=== PATIENT | female | born 1995 | race Caucasian/White ===

== ENCOUNTER 2023-07-02 14:00 | Outpatient (REF) | payer OTHER, SELFPAY ==
[2023-07-02 16:13] LABS: MANUAL DIFF FLAG NO
[2023-07-02 16:19] LABS: Basophils Absolute Auto 0.1 X10*3/uL (0.0-0.2); Basophils Percent Auto 0.7 % (0-2); Eosinophils Absolute Auto 0.5 X10*3/uL (0.0-0.4); Eosinophils Percent Auto 3.6 % (0-4); Hemoglobin 13.1 g/dl (12.0-16.0); Imm Gran Abs Auto 0.03 X10*3/uL (0.00-0.03); Imm Gran Pct Auto 0.2 % (0.0-0.4); Lymphocytes Absolute Auto 3.8 X10*3/uL (1.2-4.9); Lymphocytes Percent Auto 29.8 % (20-40); Mean Corpuscular HGB Conc 32.8 g/dl (31.0-35.0); Mean Corpuscular Hemoglobin 30.5 pg (27.0-33.0); Mean Platelet Volume 10.6 fL (9.4-12.3); Monocytes Absolute Auto 0.8 X10*3/uL (0.1-1.2); Monocytes Percent Auto 6.1 % (2-11); Neutrophils Absolute Auto 7.5 x10*3/uL (2.0-8.3); Neutrophils Percent Auto 59.6 % (45-73); Platelet Count 369 X10*3/uL (160-400); Red Cell Distribution Width 13.2 % (11.0-16.0); White Blood Count 12.6 X10*3/uL (4.8-10.8)
[2023-07-02 17:00] LABS: Alanine Aminotransferase 15 U/L (0-31); Albumin Level 4.2 g/dL (3.5-5.0); Alkaline Phosphatase 67 U/L (39-117); Anion Gap 13 (12-20); Aspartate Amino Transferase 15 U/L (5-31); Bilirubin Direct 0.2 mg/dL (0.0-0.5); Bilirubin Total 0.5 mg/dL (0.0-1.0); Blood Urea Nitrogen 10 mg/dL (9-16); Calcium 9.8 mg/dL (8.4-10.2); Carbon Dioxide 26 mmol/L (22-29); Chloride 107 mmol/L (96-108); Cholesterol 159 mg/dL (<200); Estimated Glomerular Filt Rate > 60; Glucose Random 80 mg/dL (60-115); HDL Cholesterol 54 mg/dL (>40); LDL Cholesterol Calculated 90 mg/dL (<100); Potassium 4.2 mmol/L (3.3-5.1); Sodium 142 mmol/L (135-145); Total Protein 6.9 g/dL (6.5-8.0); Triglycerides 76 mg/dL (<150)
[2023-07-02 17:18] LABS: Ferritin 32 ng/mL (10-122); TSH reflex Free T4 1.08 uIU/mL (0.32-4.0); Vitamin D 25-OH Total 11.9 ng/mL (>30)
[2023-07-02 17:23] LABS: Vitamin B12 340 pg/mL (200-900)
[2023-07-02 18:10] LABS: CT PCR NOT DETECTED (Not Detect.); NG PCR NOT DETECTED (Not Detect.)
[2023-07-03 04:43] LABS: HIV AB/AG Nonreactive (Nonreactive); HIV Num 1 0.06 S/CO (0.00-0.99); ~Hepatitis C Antibody Nonreactive (Nonreactive)
[2023-07-03 08:48] LABS: RPR Rapid Plasma Reagin NON-REACTIVE (NON-REACTIVE)
== END 2023-07-02 14:01 | disposition home or self-care (01) ==
LOC: HO.HHCL 14:00
PROVIDERS: Visit Provider Family Medicine
DX: L65.9 Nonscarring hair loss, unspecified (principal); Z11.3 Encounter for screening for infections with a predominantly sexual mode of transmission; D50.9 Iron deficiency anemia, unspecified; E78.6 Lipoprotein deficiency
CPT/HCPCS: 0353U; 80048; 80061; 80076; 82306; 82607; 82728; 84443; 85025; 86592; 86803; 87389

== ENCOUNTER 2024-05-20 | Outpatient (REF) | payer OTHER, SELFPAY ==
[2024-05-24 17:57] LABS: C. trachomatis RNA TMA NOT DETECTED (NOT DETECTED); N. gonorrhoeae RNA TMA NOT DETECTED (NOT DETECTED); Trichomonas (NAAT) NOT DETECTED (NOT DETECTED)
[2024-05-26 10:32] LABS: HPV Genotype 16 Negative (Negative); HPV Genotype 18 Negative (Negative); HPV High Risk Negative (Negative)
--- OUTSIDE RECORDS SUMMARY | 2024-08-05 14:11 | XMS_ITS | Clinical Summary ---
Author Organization [employer] Address [address] [place] [address] [address] [place] [address] Care Team Providers Care Ditch Repairer Name Role Phone Elida Wang MD Primary Care Provider [phone] Allergies No known active allergies Medications * This document contains information received from the source organization and may not represent a complete record from that organization. hydrocortisone ([place]ilo) 0.2 % creamIndications :Rash Apply topically 2 times daily. 15 g 4 Active albuterol (ProAir HFA) 108 (90 Base) MCG/ACT inhaler Inhale 2 puffs every 4 (four) hours if needed for wheezing or shortness of breath. 18 g 5 5 Active fluticasone (Flonase) 50 MCG/ACT nasal sprayIndications :Seasonal allergies Use 1 spray each nostril daily. Shake gently. Before first use, prime pump. After use, clean tip and replace cap. 16 g 2 5 Active cetirizine (ZyrTEC) 10 MG tabletIndication s:Seasonal allergies Take 1 tablet (10 mg) by mouth Once per day. 30 tablet 11 5 05/21/19 26 Active cholecalciferol (Vitamin D-3) 50 MCG (1999 UT) capsuleIndicatio ns:Vitamin D deficiency Take 1 capsule (50 mcg) by mouth Once per day. 90 capsule 3 5 Active benzoyl peroxide (PanOxyl Foaming Wash) 10 % external washIndications: Acne, unspecified acne type Apply topically Once per day. 227 g 5 07/23/19 26 Active Active Problems Problem Noted Date Diagnosed Date [...] facilitated by [facility] -dental home is [facility] -[facility] care proxy given and filed 05/20/24 Assessment & Plan (05/20/2024 10:37 AM EDT): -next comprehensive annual evaluation due after 05/20/25 -[facility] proxy given and filed 05/20/24 Assessment & Plan (05/20/2023 3:05 PM EDT): -next physical exam due after May 19, 2024 -eye care facilitated by -dental home is [facility] -[facility] health care proxy Family planning 05/20/2023 Overview (05/20/2024): - [...] Anxiety. 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 During [facility] Consult Pam presenting with [...] present factors contributing to her symptoms, but bran walsh has been present through her life due to trauma in childhood, she has never engaged in services and identify hesitation due to medication side effects that she noticed when her mother use to take depressive medications. PLAN: New/Additional Services needed Off-site services for Behavioral Health Integration Plan External OP therapy referral Patient Self Plan Patient to utilize skills provided in intervention , Patient to reach out to [facility] team as needed, Comply with medication , and Patient to engage in OP therapy Assessment & Plan (05/20/2023 2:47 PM EDT): -Not controlled, restart Effexor 37.5. Referral to [facility]. -restarted Effexor and came up with plan in 2020 -refer to a therapist 05/20/2023 Resolved Problems Problem Noted Date Diagnosed Date Resolved Date Rash 05/20/2023 02/23/2024 Overview (05/20/2023): -On the forearms has rashes that are red pin point dots -refer to tie fastener 05/20/2023 Assessment & Plan (05/20/2023 2:58 PM EDT): -On the forearms has rashes that are red pin point dots -refer to tie fastener 05/20/2023 Dental caries 05/04/2023 02/23/2024 Symptomatic irreversible pulpitis 05/04/2023 02/23/2024 Encounters Date Type Department Care Team Description 07/22/2024 2:15 PM EDT Office Visit [facility] [address] [place] [phone] Frank Flores MD Telogen effluvium (Primary Dx); Acne, unspecified acne type 07/22/2024 Travel 07/21/2024 Travel 05/23/2024 Telephone [facility] [address] [place] [address] Elida Wang MD Results 05/23/2024 Orders Only [address] [address] Elida Wang MD Vitamin D deficiency (Primary Dx) 05/20/2024 10:00 AM EDT Procedure Visit [address] [address] Elida Wang MD Posterior pain of right hip (Primary Dx); Mild intermittent asthma without complication; Iron deficiency anemia, unspecified iron deficiency anemia type; Seasonal allergies; Recurrent major depressive disorder, in partial remission ([facility]); Family planning; Pap smear for cervical cancer screening; Anemia, unspecified type; Vitamin D deficiency; Routine screening for STI (sexually transmitted infection); Encounter for immunization; Overweight (BMI 25.0-29.9); Dietary counseling; Exercise counseling; Other specified health status 05/20/2024 Orders Only [address] [address] Elida Wang MD 05/20/2024 Travel from Last 3 Months Immunizations Immunization Administration Dates Next Due DTaP 07/04/1998, 5,04/18/1994,01/21 [...] is your housing situation today? I have pratibhahammad arriaga 05/20/[address] you [...] Q2 Not on file 05/20/2024 Comments No Intention Date Recorded No desire to become (finding) 0 05/20/2024 Sex and Gender Information Value Date Recorded Sex Assigned at Female 12/09/2021 10:20 AM EDT Legal Sex Female 10:20 AM EDT Gender Identity Choose not to disclose 10:20 AM EDT Sexual Orientation Choose not to disclose 2021 10:20 AM EDT Last Filed Vital Signs Vital Sign Reading Time Taken Comments Blood Pressure 122/80 07/22/2024 2:06 PM EDT Pulse 72 07/22/2024 2:06 PM EDT Temperature 37.1 C (98.7 F) 07/22/2024 2:06 PM EDT Respiratory Rate 14 07/22/2024 2:06 PM EDT Oxygen Saturation 98% 05/20/2024 9:56 AM EDT Inhaled Oxygen Concentration - - Weight 75.7 kg (166 lb 12.8 oz) 07/22/2024 2:06 PM EDT Height 164.5 cm (5' 4.76 ) 07/22/2024 2:06 PM ED T Body Mass Index 27.96 07/22/2024 2:06 PM EDT Plan of Treatment Health Maintenance Due Date Last Done Comments Dental Oral Exam 1995 Dental Prophylaxis 1995 Dental X-Ray: Bitewings 1995 Dental X-Ray: Full Mouth 1995 Alcohol/Substance Use Screening 05/20/2025 05/20/2024 COVID-19 Vaccine ( season) 2025 10/27/2020, 10/06/2020 Postponed from 10/11/2023 (Patient Refused) Depression Screening 05/20/2025 05/20/2024, 05/21/19 Family Planning (PISQ) 05/20/2025 05/20/2024 SDOH Screening 05/20/2025 05/20/2024 Tobacco Screening 05/20/2025 05/20/2024 Disability Screening 07/21/2025 07/21/2024 Cervical Cancer Screening 05/20/2029 HPV/Cotest 05/20/2029 05/20/2024, 06/13/2016 Pap Smear 05/20/2029 05/20/2024, 11/10, 12/03/2020 DTaP/Tdap/Td Vaccines (7 - Td or Tdap) [...] Years) and At-Risk Patients (6 to 49) Years Completed 05/20/2023 Hepatitis C Screening Completed 07/02/2023 Influenza Vaccine Completed 11/26/2023, , 12/16/2016, Additional history exists HIV Screening Completed 05/20/2024, 06/10, 12/03/2020 Hepatitis A Vaccines Completed 05/20/2024, 05/20/19 Meningococcal B Vaccine Aged Out No l onger eligible based on patient's age to complete this topic RSV under 20 months Aged Out No longe r eligible based on patient's age to complete this topic Rotavirus Vaccines Aged Out No longer eligible based on patient's age to complete this topic Procedures Procedure Name Priority Date/Time Associated Diagnosis Comments CHLAMYDIA/N. GONORRHOEAE AND T. VAGINALIS RNA, QUAL,TMA Routine 05/20/2024 11:43 AM EDT Pap smear for cervical cancer screening Routine screening for STI (sexually transmitted infection) HPV DNA, LOW/HIGH RISK Routine 05/20/2024 11:43 AM EDT VITAMIN B12/FOLATE, SERUM PANEL Routine 05/20/2024 11:20 AM EDT Anemia, unspecified type IRON AND TOTAL IRON BINDING CAPACITY Routine 05/20/2024 11:20 AM EDT Anemia, unspecified type FERRITIN Routine 05/20/2024 11:20 AM EDT Anemia, unspecified type SYPHILIS SCREEN Routine 05/20/2024 11:20 AM EDT Routine screening for STI (sexually transmitted infection) HIV 1/2 ANTIGEN/ANTIBODY, FOURTH GENERATION W/RFL Routine 05/20/2024 11:20 AM EDT Routine screening for STI (sexually transmitted infection) VITAMIN D,25-OH,TOTAL,IA Routine 05/20/2024 11:20 AM EDT Vitamin D deficiency LIPID PANEL, STANDARD Routine 05/20/2024 11:20 AM EDT Overweight (BMI 25.0-29.9) HEPATIC FUNCTION PANEL Routine 05/20/2024 11:20 AM EDT Overweight (BMI 25.0-29.9) BASIC METABOLIC PANEL Routine 05/20/2024 11:20 AM EDT Hair loss CBC WITH AUTO DIFFERENTIAL Routine 05/20/2024 11:20 AM EDT Hair loss TSH W/REFLEX TO FT4 Routine 05/20/2024 1 1:20 AM EDT Hair loss PAP SMEAR Routine 05/20/2024 12:00 AM EDT Pap smear for cervical cancer screening HEPATITIS C AB W/REFL TO HCV RNA, QN, PCR Routine 07/02/2023 2:03 PM EDT Routine screening for STI (sexually transmitted infection) from Last 3 Months or Most Recently Relevant to Health Maintenance Results * STI testing add on (NG, CT, Trich) (05/20/2024 11:43 AM EDT) Trichomonas (NAAT) NOT DETECTED NOT DETECTED [facility] Comment:The analytical perfo rmance characteristics of thisassay have been determined by [employer]. Themodifications have not been cleared or approved bythe FDA. This assay has been validated pursuant to theCLIA regulations and is used for clinical purposes.For additional information, please refer [email or web address][email or web address]/faq/Trichomonastma(This link is being provided for information/educational purposes only.)THIS TEST WAS PERFORMED AT:[employer] [place] [phone] BECKER MD CTNG Ref Lab NOT DETECTED NOT DETECTED [facility] NG Ref Lab NOT DETECTED NOT DETECTED [facility] Swab Cervix uteri structure / Unknown 05/20/2024 11:43 AM EDT 05/23/2024 7:25 AM EDT Elida Wang MD LAB CYTOLOGY ORDERABLES Fi nal Result Performing Organization Address [facility]/ZIP Co de Phone Number [facility] [address] [place] [phone] * HPV DNA, Low/High Risk (05/20/2024 11:43 AM EDT) Pathologist [facility] HPV High Risk Negative Negative [facility] HPV Genotype 16 Negative Negative [facility] HPV Genotype 18 Negative Negative [facility] Comment:HPV testing performe d at [facility] (CLIA#[id number]), [address] [place] [address].Testing for HPV was performed using the [employer] 6800system. The presence of HPV in the female genital tract isassociated with a number of diseases, including cervicalcarcinoma. The HPV DNA high risk pool tests for HPV 31, 33,35, 39, 45, 51, 52, 56, 58, 59, 66 and 68. The testing forHPV 16 and 18 genotypes has also been performed. A positiveresult indicates detection of nucleic acid sequences fromone or more subtypes, whereas a negative result indicatessuch sequences were not detected. 05/20/2024 11:4 3 AM EDT 05/23/2024 7:25 AM EDT Elida Wang MD LAB BLOOD ORDERABLES Final Result Performing Organization Address [facility]/ZIP Co de Phone Number [facility] [address] [place] [phone] * Syphilis Screen (05/20/2024 11:20 AM EDT) Syphilis Screen Nonreactive Nonreactive [facility] Blood Venous blood specimen / Unknown 05/20/2024 11:20 AM EDT 05/20/2024 1:14 PM EDT Elida Wang MD LAB BLOOD ORDERABLES Final Result Performing Organization Address City/[facility]/ZIP Co de Phone Number [facility] [address] [place] [phone] * (ABNORMAL) Vitamin D, 25-Hydroxy, Total, Immunoassay (05/20/2024 11:20 AM EDT) Vitamin D 25-OH Total 17.5(L) >30 ng/mL [facility] Comment: Health Based Reference Values*< 20 ng/mL Ousglmbea33-16 ng/mL Insufficient> 30 ng/mL Sufficient*Rhoda CHIN. N Engl J Med. 2007;357:266-280There is no well-established upper level of normal vitamin Dlevels. Some laboratories use 50 ng/mL as an upper limit ofnormal. However, toxicity is patient-dependent and may occurat any level. Careful correlation with the patient'spresentation is necessary and, if there is concern forvitamin D toxicity, treatment should be consideredirrespective of the serum level.Care must be taken in interpreting Vitamin D results fromdifferent laboratories and methodologies. Published datademonstrated that results from patients undergoinghemodialysis may show a negative bias when tested withvarious automated 25-OH vitamin D assays when compared toLC-MS/MS.When testing samples from patients whose predominant form ofVitamin D is Vitamin D2, such as patients receiving VitaminD2 supplementation, results that are subtherapeutic shouldbe confirmed with another method such as LC-MS/MS. Blood 05/20/2024 11:2 0 AM EDT 05/20/2024 1:14 PM EDT Elida Wang MD LAB BLOOD ORDERABLES Final Result Performing Organization Address City/[facility]/ZIP Co de Phone Number [facility] [address] [place] [phone] * Vitamin B12 (Cobalamin) and Folate Panel, Serum (05/20/2024 11:20 AM EDT) Vitamin B12 339 200 - 900 pg/mL [facility] Comment:NORMAL 200-900 PG/ML INDETERMINATE 160-199 PG/ML DEFICIENT < 160 PG/ML Folate 12.2 > or = 4.0 ng/mL [facility] Comment:Reference Values:> o r = 4.0 ng/mL< 4.0 ng/mL suggests folate deficiency Methotrexate, aminopterin and folinic acid(leucovorin) are chemotherapeutic agents whose molecularstructures are similar to folate; therefore, the Architectfolate assay cannot be used for patients using these drugs. Blood Venous blood specimen / Unknown 05/20/2024 11:20 AM EDT 05/20/2024 1:14 PM EDT Elida Wang MD LAB BLOOD ORDERABLES Final Result Performing Organization Address City/[facility]/ZIP Co de Phone Number [facility] [address] [place] [phone] * TSH W/Reflex to FT4 (05/20/2024 11:20 AM EDT) Pathologist [facility] TSH reflex Free T4 0.84 0.32 - 4.0 uIU/mL [facility] Blood Venous blood specimen / Unknown 05/20/2024 11:20 AM EDT 05/20/2024 1:14 PM EDT Elida Wang MD LAB BLOOD ORDERABLES Final Result [facility] [address] [place] [phone] * (ABNORMAL) CBC auto differential (05/20/2024 11:20 AM EDT) Pathologist [facility] White Blood Count 8.5 4.8 - 10.8 X10*3/uL [facility] Red Blood Count 4.07(L) 4.20 - 5.50 X10*6/uL [facility] Hemoglobin 12.2 12.0 - 16.0 g/dl [facility] Hematocrit 37.3 37.0 - 47.0 % [facility] Mean Corpuscular Volume 91.6 80.0 - 98.0 fL [facility] Mean Corpuscular Hemoglobin 30.0 27.0 - 33.0 pg [facility] Mean Corpuscular HGB Conc 32.7 31.0 - 35.0 g/dl [facility] Red Cell Distribution Width 12.5 11.0 - 16.0 % [facility] Platelet Count 371 160 - 400 X10*3/uL [facility] Mean Platelet Volume 10.1 9.4 - 12.3 fL [facility] Neutrophils Percent Auto 54.1 45 - 73 % [facility] Imm Gran Pct Auto 0.2 0.0 - 0.4 % [facility] Lymphocytes Percent Auto 33.1 20 - 40 % [facility] Monocytes Percent Auto 6.7 2 - 11 % [facility] Eosinophils Percent Auto 4.6(H) 0 - 4 % [facility] Basophils Percent Auto 1.3 0 - 2 % [facility] NRBC Pct Auto 0.0 0.0 - 0.2 /100WBC [facility] Neutrophils Absolute Auto 4.6 2.0 - 8.3 x10*3/uL [facility] Imm Gran Abs Auto 0.02 0.00 - 0.03 X10*3/uL [facility] Lymphocytes Absolute Auto 2.8 1.2 - 4.9 X10*3/uL [facility] Monocytes Absolute Auto 0.6 0.1 - 1.2 X10*3/uL [facility] Eosinophils Absolute Auto 0.4 0.0 - 0.4 X10*3/uL [facility] Basophils Absolute Auto 0.1 0.0 - 0.2 X10*3/uL [facility] NRBC Abs Auto 0.000 0.0 - 0.012 X10*3/uL [facility] Blood Venous blood specimen / Unknown 05/20/2024 11:20 AM EDT 05/20/2024 1:14 PM EDT Elida Wang MD LAB BLOOD ORDERABLES Final Result Performing Organization Address [facility]/ZIP Co de Phone Number [facility] [address] [place] [phone] * Iron And Total Iron Binding Capacity (05/20/2024 11:20 AM EDT) [facility] Iron 80 30 - 160 mcg/dL [facility] Total Iron Binding Capacity 301 228 - 428 mcg/dL [facility] Percent Iron Saturation 27 15 - 50 % [facility] Unsaturated Iron Binding 221 ug/dL [facility] Blood Venous blood specimen / Unknown 05/20/2024 11:20 AM EDT 05/20/2024 1:14 PM EDT Elida Wang MD LAB BLOOD ORDERABLES Final Result Performing Organization Address [facility] Phone Number [facility] [address] [place] [phone] * HIV-1/2 Antigen and Antibodies, Fourth Generation, with Reflexes (05/20/2024 11:20 AM EDT) [facility] HIV AB/AG Nonreactive Nonreactive [facility] Comment:HIV-1 p24 Ag and/or HIV-1/HIV-2 Ab not detected.A test result that is nonreactive does not exclude thepossibility of exposure to or infection with HIV-1 and/orHIV-2. Nonreactive results in this assay for individualswith prior exposure to HIV-1 and/or HIV-2 may be due toantigen and antibody levels that are below the limit ofdetection of this assay.The [employer] HIV Ag/Ab Combo assay result andsupplemental assay results should be interpreted inconjunction with the patient's clinical presentation,history and other laboratory results. If the results areinconsistent with clinical evidence, additional testing issuggested to confirm the result. Blood Venous blood specimen / Unknown 05/20/2024 11:20 AM EDT 05/20/2024 1:14 PM EDT Elida Wang MD LAB BLOOD ORDERABLES Final Result Performing Organization Address [facility] Co de Phone Number [facility] [address] [place] [phone] * Ferritin (05/20/2024 11:20 AM EDT) Pathologist [facility] Ferritin 51 10 - 122 ng/mL [facility] Blood Venous blood specimen / Unknown 05/20/2024 11:20 AM EDT 05/20/2024 1:14 PM EDT Elida Wang MD LAB BLOOD ORDERABLES Final Result Performing Organization Address [facility] de Phone Number [facility] [address] [place] [phone] * Hepatic Function Panel (05/20/2024 11:20 AM EDT) Bilirubin, Total 0.5 0.0 - 1.0 mg/dL [facility] Bilirubin, Direct 0.2 0.0 - 0.5 mg/dL [facility] Aspartate Amino Transferase 22 5 - 31 U/L [facility] Alanine Aminotransferase 22 0 - 31 U/L [facility] Total Protein 6.8 6.5 - 8.0 g/dL [facility] Albumin Level 3.9 3.5 - 5.0 g/dL [facility] Alkaline Phosphatase 65 39 - 117 U/L [facility] Blood Venous blood specimen / Unknown 05/20/2024 11:20 AM EDT 05/20/2024 1:14 PM EDT Elida Wang MD LAB BLOOD ORDERABLES Final Result Performing Organization Address [facility] Co de Phone Number [facility] [address] [place] [phone] * Lipid Panel, Standard (05/20/2024 11:20 AM EDT) Triglycerides 80 <150 mg/dL [facility] Comment:Desirable Triglyceri de: less than 150 mg/dLBorderline High Triglyceride 150-199 mg/dLHigh Triglyceride: 200-499 mg/dLVery High Triglyceride: greater than or equal to 5OO mg/dL Cholesterol 163 <200 mg/dL [facility] Comment:Desirable Cholestero l: less than 200 mg/dLBorderline High Cholesterol: 200-239 mg/dLHigh Cholesterol: greater than 239 mg/dL LDL Cholesterol Calculated 97 <100 mg/dL [facility] Comment:Desirable LDL: less than 100 mg/dLNear Optimal/Above Optimal LDL: 110- 129 mg/dLBorderline High LDL: 130-159 mg/dLHigh LDL: 160-189 mg/dLVery High LDL: greater than or equal to 190 mg/dL HDL Cholesterol 50 >40 mg/dL [facility] Comment:Desirable HDL: great er than 40 mg/dL Note: This HDL assay may give artificially low results in patients with liver disease. Blood Venous blood specimen / Unknown 05/20/2024 11:20 AM EDT 05/20/2024 1:14 PM EDT Elida Wang MD LAB BLOOD ORDERABLES Final Result Performing Organization Address [facility]/ZIP Co de Phone Number [facility] [address] [place] [phone] * (ABNORMAL) Basic Metabolic Panel (05/20/2024 11:20 AM EDT) Sodium 140 135 - 145 mmol/L [facility] Potassium 3.7 3.3 - 5.1 mmol/L [facility] Chloride 109(H) 96 - 108 mmol/L [facility] Carbon Dioxide 27 22 - 29 mmol/L [facility] Anion Gap 8(L) 12 - 20 [facility] Urea Nitrogen (BUN) 9 9 - 16 mg/dL [facility] Creatinine, Serum 0.58 0.5 - 1.4 mg/dL [facility] Estimated Glomerular Filt Rate >60 [facility] Comment:Chronic Kidney Disea se: Estimated GFR < 60 mL/min/1.81o3Zermbz Kidney Disease: Estimated GFR < 15 mL/min/1.73m2 Glucose 83 60 - 115 mg/dL [facility] Calcium 9.0 8.4 - 10.2 mg/dL [facility] Blood Venous blood specimen / Unknown 05/20/2024 11:20 AM EDT 05/20/2024 1:14 PM EDT us Elida Wang MD LAB BLOOD ORDERABLES Final Result Performing Organization Address City/State/[facility] Co de Phone Number [facility] [address] [place] [phone] * Pap Smear (05/20/2024 12:00 AM EDT) Swab Cervix uteri structure / Unknown 05/20/2024 05/23/2024 7:25 AM EDT Narrative [facility] - 05/25/2024 9:29 AM EDT ----- ------- Name: Caimaria a LowePam Age/Sex: 28/F : 1995 Unit#: [id number] Attend Dr: Re05/20/24 Status: PRE REF Location: [facility] Disch: ----- ------- SPEC : [id number] RECD: 05/23/24 STATUS: THEE ROA NUM: [id number] CHARLIE: 05/20/24-0000 [facility] DR: Elida Wang MD ENTERED: 05/23/24 SP TYPE: Pap Smr OTHR DR: ORDERED: Pap Smear Interpretation Satisfactory for evaluation. Negative for intraepithelial lesion or malignancy. HPV High Risk: Negative HPV Genotyping 16: Negative HPV Genotyping 18: Negative Clinical Information LMP:04/13/2024 Previous PAP test:5 years ago Material Received ThinPrep-Cervical ----- ------- Signed (signature on file) EDILSON Miranda (ASCP) 05/25/24 0929 ----- ------- END OF REPORT Elida Wang MD LAB CYTOLOGY ORDERABLES Fi nal Result [facility] [address] [place] [phone] * Hepatitis C Antibody with Reflex to HCV, RNA, Quantitative, Real-Time PCR (07/02/2023 2:03 PM EDT) Hepatitis C Antibody Nonreactive Nonreactive [facility] Comment:Antibodies to HCV no t detected; does not exclude early acuteHCV infection. Blood Venous blood specimen / Unknown 07/02/2023 2:03 PM EDT 07/02/2023 4:07 PM EDT us Elida Wang MD LAB BLOOD ORDERABLES Final Result [facility] [address] [place] [phone] from Last 3 Months or Most Recently Relevant to Health Maintenance Insurance [place] [address] , [address] [place] [address] [facility] Advance Directives Documents on File Type Date Recorded Patient Bookkeeping Assistant Expl anation Advance Directives and Living Will 05/20/2024 Health Care Proxy 05/20/24 Care Teams Ditch Repairer Relationship Specialty Start Date End Date Nuckolls, MD Elida [address] [place] [id number] PCP - General Family Medicine 02/09/18
== END 2024-05-20 00:01 | disposition home or self-care (01) ==
LOC: HO.LNP
PROVIDERS: Visit Provider Family Medicine
DX: Z12.4 Encounter for screening for malignant neoplasm of cervix (principal); Z11.3 Encounter for screening for infections with a predominantly sexual mode of transmission; D64.9 Anemia, unspecified; L65.9 Nonscarring hair loss, unspecified
CPT/HCPCS: 87491; 87591; 87626; 87661; 88175

== ENCOUNTER 2024-05-20 11:17 | Outpatient (REF) | payer OTHER, SELFPAY ==
--- OUTSIDE RECORDS SUMMARY | 2024-05-20 12:17 | XMS_ITS | Encounter Summary ---
Author Organization [employer] [facility] Address [address] [place] [address] [address] [place] [address] Care Team Providers Care Drop Wire Operator Name Role Phone Elida Wang MD Primary Care Provider +1- [phone] Encounter Details Date Type Department Care Team (Late st Contact Info) Description 03/14/2022 Abstract [facility] [address], [place] [phone] Elida Wang MD [address] [place], [place] [id number] Social History Tobacco Use Types Packs/Day Years Used Date Smoking Tobacco: Never Assessed Comments Unknown Sex and Gender Information Value Date Recorded Sex Assigned at Female 12/09/2021 10:20 AM EDT Legal Sex Female 10:20 AM EDT Gender Identity Choose not to disclose 10:20 AM EDT Sexual Orientation Choose not to disclose 2021 10:20 AM EDT documented as of this encounter Plan of Treatment Not on file documented as of this encounter Procedures Procedure Name Priority Date/Time Associated Diagnosis Comments PAP SMEAR Routine 12/03/2020 12:00 AM EDT documented in this encounter Results * Pap Smear (12/03/2020 12:00 AM EDT) Swab us Historical Provider LAB CYTOLOGY ORDERABLES F inal Result IMAGING documented in this encounter Visit Diagnoses Not on filedocumented in this encounter Care Teams Drop Wire Operator Relationship Specialty Start Date End Date Elida Wang MD [address] [place], [place] [phone] PCP - General Family Medicine 02/09/18 documented as of this encounter
--- OUTSIDE RECORDS SUMMARY | 2024-05-20 12:17 | XMS_ITS | Encounter Summary ---
Author Organization [employer] [facility] Address [address] [place] [address] Care Team Providers Care Cupola Tapper Name Role Phone Elida Wang MD Primary Care Provider [phone]- [phone] Reason for Referral * Consultation (Routine) - Pending Review Specialty Diagnoses / Procedures Referred By Rosana prince Referred To Contact Physical Therapy Diagnoses Posterior pain of right hip Elida Wang MD [address] [place] [phone] Phone: tel: fax: Referral ID Status Reason Start Date Expiration Date Visits Requested Visits Authorized [id number] Pending Review Specialty Services Required 05/20/2024 05/20/2025 1 1 Encounter Details Date Type Department Care Team (Latest Contact Info) Description 05/20/2024 10:00 AM EDT Procedure Visit [facility] [address] [place] [address] [phone] Elida Wang MD [address] [place] [address] [phone] Posterior pain of right hip (Primary Dx); Mild intermittent asthma without complication; Iron deficiency anemia, unspecified iron deficiency anemia type; Seasonal allergies; Recurrent major depressive disorder, in partial remission (CMS/HCC); Family planning; Pap smear for cervical cancer screening; Anemia, unspecified type; Vitamin D deficiency; Routine screening for STI (sexually transmitted infection); Encounter for immunization; Overweight (BMI 25.0-29.9); Dietary counseling; Exercise counseling; Other specified health status Social History Tobacco Use Types Packs/Day Years Used Date Smoking Tobacco: Never Smokeless Tobacco: Never Depression Answer Date Recorded Patient Health Questionnaire-9 Score 6 05/20/2024 Patient Health Questionnaire-9 Score 6 05/20/2024 Last PHQ-9: Questionnaire Data Not on file 0 05/20/2024 Housing Stability Answer Date Recorded What is your housing situation today? I have pratibha arriaga 05/20/[address] you li ve. Do you have problems with any of the following? None of the above 05/20/2024 Food Insecurity Answer Date Recorded Within the past 12 months, y ou worried that your food would run out before you got money to buy more: Never True 05/20/2024 Within the past 12 months,th e food you bought just didn't last and you didn't have enough money to get more: Never True 12/2024 Transportation Answer Date Recorded In the past 12 months, has l ack of transportation kept you from medical appts, meetings, work or from getting things needed for daily living? No 05/20/2024 Utilities Answer Date Recorded In the past 12 months, has t he electric, gas, oil or water company threatened to shut off services in your home? No 05/20/2024 Depression Answer Date Recorded Patient Health Questionnaire-2 Score 2 05/20/2024 Internet Access Answer Date Recorded Internet Access Q1 Yes 05/20/2024 Internet Access Q2 Not on file 05/20/2024 Comments No Sex and Gender Information Value Date Recorded Sex Assigned at Female 12/09/2021 10:20 AM EDT Legal Sex Female 10:20 AM EDT Gender Identity Choose not to disclose 10:20 AM EDT Sexual Orientation Choose not to disclose 2021 10:20 AM EDT documented as of this encounter Last Filed Vital Signs Vital Sign Reading Time Taken Comments Blood Pressure 116/68 05/20/2024 9:56 AM EDT Pulse 70 05/20/2024 9:56 AM EDT Temperature 36.1 ??C (96.9 ??F) 05/20/2024 9:56 AM ED T Respiratory Rate 21 05/20/2024 9:56 AM EDT Oxygen Saturation 98% 05/20/2024 9:56 AM EDT Inhaled Oxygen Concentration - - Weight 76.7 kg (169 lb 3.2 oz) 05/20/2024 9:56 A M EDT Height 164.5 cm (5' 4.76 ) 05/20/2024 9:56 AM ED T Body Mass Index 28.36 05/20/2024 9:56 AM EDT documented in this encounter Progress Notes * Elida Wang MD - 05/20/2024 10:00 AM EDT Hattei Orozco is a 28 y.o. adult with past medical history of moderate asthma, anemia, and major depressive disorder who presents to the office today for [facility] medical conditions and comprehensive annual evaluation. Pt reports overall doing well. She notes she has had intermittent episodes of right hip pain that occurs very scattered, not in any type of pattern. She denies nay injury. Recently she reports more frequent and prolonged episodes from sitting and sleeping in different environments. Agrees to Hep A, declined COVID vaccine today. LMP: n/a Menses frequency: regular th occasional spotting Menses concerns: severe cramping Desires within the next year: no Brith control: condoms Breast concerns: none Negative for: Masses, Nipple discharge, and Tenderness Menopausal symptoms negative for: hot flashes, night sweats, urinary incontinence and vaginal dryness. Social History Tobacco: denied Drugs: marijuana, edibles Alcohol: Yes, on weekends, being safe. Sexuality: Sexually active, not often. Denies control. Uses condoms, accepts Plan B. Suicide/Depression: The patient denies any present symptoms of depression or anxiety. Review of Systems Constitutional: Negative for fatigue, fever and unexpected weight change. Respiratory: Negative for cough and shortness of breath. Cardiovascular: Negative for chest pain. Gastrointestinal: Negative for abdominal pain. Genitourinary: Negative for difficulty urinating. Current Outpatient Medications: albuterol (ProAir HFA) 108 (90 Base) MCG/ACT inhaler, Inhale 2 puffs every 4 (four) hours if neededfor wheezing or shortness of breath., Disp: 18 g, Rfl: 5 cetirizine (ZyrTEC) 10 MG tablet, Take 1 tablet (10 mg) by mouth Once per day., Disp: 30 tablet, Rfl: 11 fluticasone (Flonase) 50 MCG/ACT nasal spray, Use 1 spray each nostril daily. Shake gently. Before first use, prime pump. After use, clean tip and replace cap., Disp: 16 g, Rfl: 2 hydrocortisone (West-[place]ilo) 0.2 % cream, Apply topically 2 times daily., Disp: 15 g, Rfl: 0 levonorgestrel (Plan B) 1.5 MG tablet, Take 1 tablet (1.5 mg) by mouth 1 (one) time for 1 dose., Disp: 1 tablet, Rfl: 0 No Known Allergies Past Medical History: Diagnosis Date Major depressive disorder 08/23/2021 -Not controlled, restart Effexor 37.5. Referral to [facility]. -restarted Effexor and came up with plan [id number] -refer to a therapist 05/20/2023 History reviewed. No pertinent surgical history. Family History Problem Relation Name Age of Onset Diabetes Mother Diabetes Father Heart disease Father Ovarian cancer Father's Sister Previous paps: 12/03/20 NILM Mammogram: n/a Objective Visit Vitals BP 116/68 Pulse 70 Temp 96.9 ??F (36.1 ??C) (Temporal) Resp 21 Ht 5' 4.76 (1.645 m) Wt 169 lb 3.2 oz (76.7 kg) LMP 04/13/2024 (Exact Date) SpO2 98% BMI 28.36 kg/m?? OB Status Having periods Smoking Status Never BSA 1.87 m?? Physical Exam Constitutional: Appearance: Normal appearance. HENT: Right Ear: Tympanic membrane normal. Left Ear: Tympanic membrane normal. Nose: Nose normal. Mouth/Throat: Pharynx: Oropharynx is clear. Eyes: Extraocular Movements: Extraocular movements intact. Pupils: Pupils are equal, round, and reactive to light. Cardiovascular: Rate and Rhythm: Normal rate and regular rhythm. Heart sounds: Normal heart sounds. Pulmonary: Effort: Pulmonary effort is normal. Breath sounds: Normal breath sounds. No wheezing. Chest: Breasts: Right: Normal. Left: Normal. Abdominal: General: Abdomen is flat. Palpations: Abdomen is soft. Tenderness: There is no abdominal tenderness. Genitourinary: General: Normal vulva. Vagina: Normal. Cervix: Normal. Uterus: Normal. Musculoskeletal: General: Normal range of motion. Lymphadenopathy: Upper Body: Right upper body: No supraclavicular, axillary or pectoral adenopathy. Left upper body: No supraclavicular, axillary or pectoral adenopathy. Skin: General: Skin is warm and dry. Neurological: General: No focal deficit present. Mental Status: She is alert. Psychiatric: Mood and Affect: Mood normal. Behavior: Behavior normal. 28 y.o. adult annual evaluation. Problem List Items Addressed This Visit Posterior pain of right hip - Primary Suspect acute on chronic pain. -ordered XR of right hip given no previous imaging. 05/20/24 -referred to PT 05/20/24 Relevant Orders XR Hip 2 or 3 Views Right Referral to Physical Therapy Moderate persistent asthma Continue on albuterol inhaler and Flovent. Anemia Lab Results Component Value Date FERRITIN 32 07/02/2023 HGB 13.1 07/02/2023 HGB 11.5 (L) 12/03/2020 HEMATOCRIT 34.2 (L) 12/03/2020 -ordered repeat iron panel 05/20/24 Relevant Orders TSH with Reflex to Free T4 CBC auto differential Ferritin Iron And Total Iron Binding Capacity Vitamin B12 (Cobalamin) and Folate Panel, Serum Seasonal allergies -continue fluticasone (Flonase) 50 MCG/ACT nasal spray -continue Cetirizine (ZyrTEC) 10 MG Relevant Medications fluticasone (Flonase) 50 MCG/ACT nasal spray cetirizine (ZyrTEC) 10 MG tablet Major depressive disorder -Not controlled, restart Effexor 37.5. Referral to [facility]. -restarted Effexor and came up with plan in 2020 -referred to a therapist 05/20/2023 Family planning - Not planning on have any children. - Sexually active, not often. - Denies control. - Uses condoms, accepts Plan B. Pap smear for cervical cancer screening Pap with HPV testing done 05/20/24 STI testing offered, PreP offered Preventative care and harm reduction discussed Relevant Orders Pap Smear STI testing add on (NG, CT, Trich) Vitamin D deficiency Relevant Orders Vitamin D, 25-Hydroxy, Total, Immunoassay Overweight (BMI 25.0-29.9) Relevant Orders Hepatic Function Panel Lipid Panel, Standard Basic Metabolic Panel Dietary counseling Dietary Recommendations: Fruits, vegetables, whole grains, protein foods, and fat-free or low-fat dairy products are healthychoices. Eat different types of protein foods in your diet. This can include seafood, lean meats, poultry, beans, peas, lentils, nuts, seeds, soy products, and eggs. Limit foods and beverages higher in added sugars, saturated fat, and sodium. Exercise counseling Exercise Recommendations: At least 150 minutes of moderate-intensity physical activity per week, or an equivalent combinationof moderate- and vigorous-intensity activity. Other specified health status -next comprehensive annual evaluation due after 05/20/25 -eye care facilitated by [facility] -dental home is [facility] -parminder care proxy given and filed 05/20/24 Other Visit Diagnoses Routine screening for STI (sexually transmitted infection) Relevant Orders HIV-1/2 Antigen and Antibodies, Fourth Generation, with Reflexes Syphilis Screen STI testing add on (NG, CT, Trich) Encounter for immunization Relevant Orders HEPATITIS A VACCINE ADULT 19 yrs + Pap with HPV testing done STI testing offered, PreP offered Preventative care and harm reduction discussed Annual Evaluation -Normal growth and development. -Anticipatory guidance discussed. -Preventative care / harm reduction discussed. Follow up in about 1 year (around 05/20/2025) for physical. I, Librado Elizalde, am serving as a scribe to document services personally performed by Dr. Degroot, based on the patient's response to questions by provider and providers statements to me. documented in this encounter Miscellaneous Notes * Assessment & Plan Note - Librado Elizalde - 05/20/2024 10:35 AM EDTAssociated Problem(s): Dietary counseling Dietary Recommendations: Fruits, vegetables, whole grains, protein foods, and fat-free or low-fat dairy products are healthychoices. Eat different types of protein foods in your diet. This can include seafood, lean meats, poultry, beans, peas, lentils, nuts, seeds, soy products, and eggs. Limit foods and beverages higher in added sugars, saturated fat, and sodium. * Assessment & Plan Note - Librado Elizalde - 05/20/2024 10:34 AM EDTAssociated Problem(s): Exercise counseling Exercise Recommendations: At least 150 minutes of moderate-intensity physical activity per week, or an equivalent combinationof moderate- and vigorous-intensity activity. * Assessment & Plan Note - Librado Elizalde - 05/20/2024 10:29 AM EDTAssociated Problem(s): Seasonal allergies -continue fluticasone (Flonase) 50 MCG/ACT nasal spray -continue Cetirizine (ZyrTEC) 10 MG * Assessment & Plan Note - Librado Elizalde - 05/20/2024 10:28 AM EDTAssociated Problem(s): Major depressive disorder -Not controlled, restart Effexor 37.5. Referral to N. -restarted Effexor and came up with plan in 2020 -referred to a therapist 05/20/2023 * Assessment & Plan Note - Librado Elizalde - 05/20/2024 10:28 AM EDTAssociated Problem(s): Iron deficiency anemia (Deleted) Lab Results Component Value Date FERRITIN 32 07/02/2023 HGB 13.1 07/02/2023 HGB 11.5 (L) 12/03/2020 HEMATOCRIT 34.2 (L) 12/03/2020 -ordered repeat iron panel 05/20/24 * Assessment & Plan Note - Librado Elizalde - 05/20/2024 10:28 AM EDTAssociated Problem(s): Moderate persistent asthma Continue on albuterol inhaler and Flovent. * Assessment & Plan Note - Librado Elizalde - 05/20/2024 10:23 AM EDTAssociated Problem(s): Posterior pain of right hip Suspect acute on chronic pain. -ordered XR of right hip given no previous imaging. 05/20/24 -referred to PT 05/20/24 * Assessment & Plan Note - Librado Elizalde - 05/20/2024 10:18 AM EDTAssociated Problem(s): Family planning - Not planning on have any children. - Sexually active, not often. - Denies control. - Uses condoms, accepts Plan B. * Assessment & Plan Note - Librado Elizalde - 05/20/2024 10:18 AM EDTAssociated Problem(s): Pap smear for cervical cancer screening Pap with HPV testing done 05/20/24 STI testing offered, PreP offered Preventative care and harm reduction discussed * Assessment & Plan Note - Librado Elizalde - 05/20/2024 10:17 AM EDTAssociated Problem(s): Other specified health status -next comprehensive annual evaluation due after 05/20/25 -eye care facilitated by [facility] -dental home is [facility] -parminder care proxy given and filed 05/20/24 * Assessment & Plan Note - Librado Elizalde - 05/20/2024 10:00 AM EDTAssociated Problem(s): Anemia Lab Results Component Value Date FERRITIN 32 07/02/2023 HGB 13.1 07/02/2023 HGB 11.5 (L) 12/03/2020 HEMATOCRIT 34.2 (L) 12/03/2020 -ordered repeat iron panel 05/20/24 documented in this encounter Plan of Treatment Scheduled Orders Name Type Priority Associated Diagnoses Orde r Schedule XR Hip 2 or 3 Views Right Imaging Routine Posterior pain of right hip Expected: 05/20/2024, Expires: 05/20/2025 Hepatic Function Panel Lab Routine Overweight (BMI 25.0-29.9) Expected: 05/20/2024, Expires: 05/20/2025 Lipid Panel, Standard Lab Routine Overweight (BMI 25.0-29.9) Expected: 05/20/2024, Expires: 05/20/2025 Basic Metabolic Panel Lab Routine Overweight (BMI 25.0-29.9) Expected: 05/20/2024, Expires: 05/20/2025 TSH with Reflex to Free T4 Lab Routine Anemia, unspecified type Expected: 05/20/2024 (Approximate), Expires: 05/20/2025 CBC auto differential Lab Routine Anemia, unspecified type Expected: 05/20/2024, Expires: 05/20/2025 Vitamin D, 25-Hydroxy, Total, Immunoassay Lab Routine Vitamin D deficiency Expected: 05/20/2024 (Approximate), Expires: 05/20/2025 HIV-1/2 Antigen and Antibodies, Fourth Generation, with Reflexes Lab Routine Routine screening for STI (sexually transmitted infection) Expected: 05/20/2024 (Approximate), Expires: 05/20/2025 Syphilis Screen Lab Routine Routine screening for STI (sexually transmitted infection) Expected: 05/20/2024 (Approximate), Expires: 05/20/2025 Ferritin Lab Routine Anemia, unspecified type Expected: 05/20/2024, Expires: 05/20/2025 Iron And Total Iron Binding Capacity Lab Routine Anemia, unspecified type Expected: 05/20/2024, Expires: 05/20/2025 Vitamin B12 (Cobalamin) and Folate Panel, Serum Lab Routine Anemia, unspecified type Expected: 05/20/2024, Expires: 05/20/2025 Pap Smear Pathology and Cytology Routine Pap smear for cervical cancer screening Ordered: 05/20/2024 STI testing add on (NG, CT, Trich) Pathology and Cytology Routine Pap smear for cervical cancer screening Routine screening for STI (sexually transmitted infection) Ordered: 05/20/2024 Scheduled Referrals Name Type Priority Associated Diagnoses Orde r Schedule Referral to Physical Therapy Outpatient Referral Routine Posterior pain of right hip Expected: 05/20/2024 (Approximate), Expires: 05/20/2025 documented as of this encounter Visit Diagnoses Diagnosis Posterior pain of right hip- Primary Mild intermittent asthma without complication Iron deficiency anemia, unspecified iron deficiency anemia type Seasonal allergies Allergic rhinitis, cause unspecified Recurrent major depressive disorder, in partial remission ([facility]) Family planning Other general counseling and advice for contraceptive management Pap smear for cervical cancer screening Screening for malignant neoplasm of the cervix Anemia, unspecified type Vitamin D deficiency Routine screening for STI (sexually transmitted infection) Screening examination for venereal disease Encounter for immunization Overweight (BMI 25.0-29.9) Overweight Dietary counseling Dietary surveillance and counseling Exercise counseling Other specified health status documented in this encounter Additional Health Concerns Assessment Noted Time PHQ-9 Depression Total Score: 6 05/21/19 25 11:18 AM EDT documented as of this encounter Care Teams Cupola Tapper Relationship Specialty Start Date End Date Elida Wang MD [address] [place] [id number] PCP - General Family Medicine 02/09/18 documented as of this encounter
--- OUTSIDE RECORDS SUMMARY | 2024-05-20 12:17 | XMS_ITS | Encounter Summary ---
Author Organization [employer] Address [address] [place] [address] [address] [place] [address] Care Team Providers Care Tuber Machine Cutter Name Role Phone Elida Wang MD Primary Care Provider +1- [phone] Encounter Details Date Type Department Care Team (Latest Contact Info) Description 05/20/2024 Travel Social History Tobacco Use Types Packs/Day Years Used Date Smoking Tobacco: Never Smokeless Tobacco: Never Depression Answer Date Recorded Patient Health Questionnaire-9 Score 6 05/20/2024 Patient Health Questionnaire-9 Score 6 05/20/2024 Last PHQ-9: Questionnaire Data Not on file 0 05/20/2024 Housing Stability Answer Date Recorded What is your housing situation today? I have pratibha corina 05/20/[address] you li [...] on file documented as of this encounter Visit Diagnoses Not on filedocumented in this encounter Additional Health Concerns Assessment Noted Time PHQ-9 Depression Total Score: 6 05/21/19 25 11:18 AM EDT documented as of this encounter Care Teams Tuber Machine Cutter Relationship Specialty Start Date End Date Elida Wang MD [address] [place] [id number] PCP - General Family Medicine 02/09/18 documented as of this encounter
--- OUTSIDE RECORDS SUMMARY | 2024-05-20 12:17 | XMS_ITS | Clinical Summary ---
Author Organization [employer] Address [address] [place] [address] 7 [place] [address] Care Team Providers Care Corporate Relations Manager Name Role Phone Elida Wang MD Primary Care Provider [phone] Allergies No known active allergies Medications * This document contains information received from the source organization and may not represent a complete record from that organization. hydrocortisone ([place]) 0.2 % creamIndication s:Rash Apply topically 2 times daily. 15 g 05/20/19 24 Active levonorgestrel (Plan B) 1.5 MG tablet Take 1 tablet (1.5 mg) by mouth 1 (one) time for 1 dose. 1 tablet 05/21/19 25 025 Active albuterol (ProAir HFA) 108 (90 Base) MCG/ACT inhaler Inhale 2 puffs every 4 (four) hours if needed for wheezing or shortness of breath. 18 g 5 05/21/19 25 Active fluticasone (Flonase) 50 MCG/ACT nasal sprayIndication s:Seasonal allergies Use 1 spray each nostril daily. Shake gently. Before first use, prime pump. After use, clean tip and replace cap. 16 g 2 05/21/19 25 Active cetirizine (ZyrTEC) 10 MG tabletIndicatio ns:Seasonal allergies Take 1 tablet (10 mg) by mouth Once per day. 30 tablet 11 05/21/19 25 026 Active cetirizine (ZyrTEC) 10 MG tabletIndicatio ns:Seasonal allergies Take 1 tablet (10 mg) by mouth in the morning. 30 tablet 11 05/20/19 24 025 Discontinued(Re order (will not trigger notification to Pharmacy)) fluticasone (Flonase) 50 MCG/ACT nasal sprayIndication s:Seasonal allergies Use 1 spray each nostril daily. Shake gently. Before first use, prime pump. After use, clean tip and replace cap. 16 g 2 05/20/19 24 025 Discontinued(Re order (will not trigger notification to Pharmacy)) albuterol (ProAir HFA) 108 (90 Base) MCG/ACT inhalerIndicati ons:COVID-19 virus infection,Moder ate persistent asthma without complication Inhale 2 puffs every 4 (four) hours if needed for wheezing or shortness of breath. 18 g 5 08/05/19 24 025 Discontinued(Re order (will not trigger notification to Pharmacy)) Active Problems Problem Noted Date Diagnosed Date Posterior pain of right hip 05/20/2024 Overview (05/20/2024): Suspect acute on chronic pain. -ordered XR of right hip given no previous imaging. 05/20/24 -referred to PT 05/20/24 Assessment & Plan (05/20/2024 10:23 AM EDT): Suspect acute on chronic pain. -ordered XR of right hip given no previous imaging. 05/20/24 -referred to PT 05/20/24 Vitamin D deficiency 05/20/2024 Overweight (BMI 25.0-29.9) 05/20/2024 Dietary counseling 05/20/2024 Assessment & Plan (05/20/2024 10:35 AM EDT): Dietary Recommendations: Fruits, vegetables, whole grains, protein foods, and fat-free or low-fat dairy products are healthy choices. Eat different types of protein foods in your diet. This can include seafood, lean meats, poultry, beans, peas, lentils, nuts, seeds, soy products, and eggs. Limit foods and beverages higher in added sugars, saturated fat, and sodium. Exercise counseling 05/20/2024 Assessment & Plan (05/20/2024 10:34 AM EDT): Exercise Recommendations: At least 150 minutes of moderate-intensity physical activity per week, or an equivalent combination of moderate- and vigorous-intensity activity. Pap smear for cervical cancer screening 03/24/19 Overview (05/20/2024): Pap with HPV testing done 05/20/24 STI testing offered, PreP offered Preventative care and harm reduction discussed Assessment & Plan (05/20/2024 10:18 AM EDT): Pap with HPV testing done 05/20/24 STI testing offered, PreP offered Preventative care and harm reduction discussed Seasonal allergies 02/23/2024 Overview (05/20/2024): -continue fluticasone (Flonase) 50 MCG/ACT nasal spray -continue Cetirizine (ZyrTEC) 10 MG Assessment & Plan (05/20/2024 10:30 AM EDT): -continue fluticasone (Flonase) 50 MCG/ACT nasal spray -continue Cetirizine (ZyrTEC) 10 MG Moderate anxiety 08/03/2023 Other specified health status 05/20/2023 Overview (05/20/2024): -next comprehensive annual evaluation due after 05/20/25 -eye care facilitated by [facility] -dental home is [facility] [place] proxy given and filed 05/20/24 Assessment & Plan (05/20/2024 10:37 AM EDT): -next comprehensive annual evaluation due after 05/20/25 -eye care facilitated by [facility] -dental home is [facility] proxy given and filed 05/20/24 Assessment & Plan (05/20/2023 3:05 PM EDT): -next physical exam due after May 19, 2024 -eye care facilitated by -dental home is [facility] proxy Family planning 05/20/2023 Overview (05/20/2024): - Not planning on have any children. - Sexually active, not often. - Denies control. - Uses condoms, accepts Plan B. Assessment & Plan (05/20/2024 10:18 AM EDT): - Not planning on have any children. - Sexually active, not often. - Denies control. - Uses condoms, accepts Plan B. Assessment & Plan (05/20/2023 2:54 PM EDT): -Patient currently on control pills. Not planning on have any children. Moderate persistent asthma 11/03/2022 Overview (05/20/2024): Continue on albuterol inhaler and Flovent. Assessment & Plan (05/20/2024 10:28 AM EDT): Continue on albuterol inhaler and Flovent. Assessment & Plan (05/20/2023 3:05 PM EDT): Continue on albuterol inhaler and Flovent. Anemia 11/03/2022 Overview (05/20/2024): Lab Results Component Value Date FERRITIN 32 07/02/2023 HGB 13.1 07/02/2023 HGB 11.5 (L) 12/03/2020 HEMATOCRIT 34.2 (L) 12/03/2020 -ordered repeat iron panel 05/20/24 Assessment & Plan (05/20/2024 10:33 AM EDT): Lab Results Component Value Date FERRITIN 32 07/02/2023 HGB 13.1 07/02/2023 HGB 11.5 (L) 12/03/2020 HEMATOCRIT 34.2 (L) 12/03/2020 -ordered repeat iron panel 05/20/24 Major depressive disorder 08/23/2021 Overview (05/20/2023): -Not controlled, restart Effexor 37.5. Referral to [facility]. -restarted Effexor and came up with plan in 2020 -refer to a therapist 05/20/2023 Assessment & Plan (05/20/2024 10:28 AM EDT): -Not controlled, restart Effexor 37.5. Referral to N. -restarted Effexor and came up with plan in 2020 -referred to a therapist 05/20/2023 Assessment & Plan (08/03/2023 11:25 AM EDT): PROGRESS NOTE: ID: Pam is a 27 y.o. cis-female with previous documented hx of Depression and Anxiety. No previous hx of MH services who presents for Depression and Anxiety. 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 During IBH Consult Pam presenting with loss of interests/pleasure , changes in sleep sleeping too much, trouble concentrating, fatigue/loss of energy, worthlessness and excessive worry/anxiety, difficulty controlling worry, easily fatigued, difficulty concentrating/Mind going blank , irritability, muscle tension, and sleep disturbance sleeping too much; for a period of 18+ mo, for all symptoms in the context of patient was unable to identify present factors contributing to her symptoms, but replbenny walsh has been present through her life due to trauma in childhood, she has never engaged in MH services and identify hesitation due to medication side effects that she noticed when her mother use to take depressive medications. PLAN: New/Additional Services needed Off-site services for Behavioral Health Integration Plan External OP therapy referral Patient Self Plan Patient to utilize skills provided in intervention , Patient to reach out to [facility] team as needed, Comply with medication , and Patient to engage in OP therapy Assessment & Plan (05/20/2023 2:47 PM EDT): -Not controlled, restart Effexor 37.5. Referral to N. 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); Family planning; Pap smear for cervical cancer screening; Anemia, unspecified type; Vitamin D deficiency; Routine screening for STI (sexually transmitted infection); Encounter for immunization; Overweight (BMI 25.0-29.9); Dietary counseling; Exercise counseling; Other specified health status 05/20/2024 Travel 03/29/[address] [address] Elida Wang MD Appointment Confirmation (I book the appt on 05/20/2024 for Pap.) 03/29/2024 Travel 03/25/[address] [address] Elida Wang MD Appointment Request 03/18/[address] [address] Luciana Bai MA chartprep from Last 3 Months Immunizations Name Administration Dates Next Due DTaP 07/04/1998, 5,04/18/1994,01/21 HPV, Bivalent 10/30/2011 HPV, Quadrivalent 06/19/2010,04/23/2009 Hep A, Adult 05/20/2024,05/20/2023 Hep B, Adolescent or Pediatric 07/27/1998,1994,01/21/1994 Hib (HbOC) 11/10/1994,04/24/1994,01/21/1994 IPV 07/04/1998, 5,04/24/1994,01/21 Influenza injectable quadriv alent preservative free 12/03/2020,12/16/2016 Influenza, Split (incl. dallin fied surface antigen) 11/03/2012,10/30/2011 Influenza, seasonal, injecta ble, preservative free 11/26/2023 MMR 07/27/1998,10/24/1994 Meningococcal MCV4P [id number] 06/19/2010 Pneumococcal Conjugate PCV 20 05/20/2023 TD (adult), 2 Lf tetanus tox oid, preservative free, adsorbed 08/28/2004 Tdap 05/20/2023,10/30/2011 Varicella 06/19/2010,04/23/2009 Family History Medical History Relation Name Comments Diabetes Father Heart disease Father Ovarian cancer Father's Sister Diabetes Mother Relation Name Status Comments Father Father's Sister Mother Social History Tobacco Use Types Packs/Day Years [...] not to disclose 2021 10:20 AM EDT Last Filed Vital Signs Vital Sign Reading [...] Mass Index 28.36 05/20/2024 9:56 AM EDT Plan of Treatment Health Maintenance Due Date Last Done Comments Dental Oral Exam 1993 Dental Prophylaxis 1993 Dental X-Ray: Bitewings 1993 Dental X-Ray: Full Mouth 1993 HPV/Cotest 11/09/2023 06/13/2016 Cervical Cancer Screening 12/04/2023 Pap Smear 12/04/2023 12/03/2020, 12/03/2020 Alcohol/Substance Use Screening 05/20/2025 05/20/2024 COVID-19 Vaccine ( season) 2025 10/27/2020, 10/06/2020 Postponed from 10/11/2023 (Patient Refused) Depression Screening 05/20/2025 05/20/2024, 05/21/19 Family Planning (PISQ) 05/20/2025 05/20/2024 SDOH Screening 05/20/2025 05/20/2024 Tobacco Screening 05/20/2025 05/20/2024 DTaP/Tdap/Td Vaccines (7 - Td or Tdap) 05/19/2033 05/20/2023, 10/30/2011, 08/28/2004, Additional history exists Zoster Vaccines (1 of 2) 11/09/2043 RSV Patients and Patients Aged 60 years or older (1 - 1-dose 75+ series) 2068 HIB Vaccines Completed 11/10/1994, 04/09, 01/21/1994 IPV Vaccines Completed 07/04/1998, 06/09, 04/24/1994, Additional history exists Hepatitis B Vaccines Completed 07/27/1998, 06/20/1994, 01/21/1994 Meningococcal Vaccine Completed 06/19/2010 HPV Vaccines Completed 10/30/2011, 06/09, 04/23/2009 Pneumococcal Vaccine: Pediatrics (0 to 5 Years) and At-Risk Patients (6 to 49) Years) Completed 05/20/2023 HIV Screening Completed 07/02/2023, 12/03/2020 Hepatitis C Screening Completed 07/02/2023 Influenza Vaccine Completed 11/26/2023, , 12/16/2016, Additional history exists Hepatitis A Vaccines Completed 05/20/2024, 05/20/19 RSV under 20 months Aged Out No longe r eligible based on patient's age to complete this topic Rotavirus Vaccines Aged Out No longer eligible based on patient's age to complete this topic Procedures Procedure Name Priority Date/Time Associated Diagnosis Comments HEPATITIS C AB W/REFL TO HCV RNA, QN, PCR Routine 07/02/2023 2:03 PM EDT Routine screening for STI (sexually transmitted infection) HIV 1/2 ANTIGEN/ANTIBODY, FOURTH GENERATION W/RFL Routine 07/02/2023 2:03 PM EDT Routine screening for STI (sexually transmitted infection) THINPREP IMAGING PAP REFLEX HPV MRNA E6/E7, C. TRACHOMATIS,N. GONORRHOEAE Routine 12/03/2020 1:53 PM EDT ZZZ HISTORICAL HPV E6/E7 RFLX SHAUN 16 18/45 Routine 06/13/2016 10:25 AM EDT from Last 3 Months or Most Recently Relevant to Health Maintenance Results * Hepatitis C Antibody with Reflex to HCV, RNA, Quantitative, Real-Time PCR (07/02/2023 2:03 PM EDT) Pathologist [facility] Hepatitis C Antibody Nonreactive Nonreactive [facility] Comment:Antibodies to HCV no t detected; does not exclude early acuteHCV infection. Blood Venous blood specimen / Unknown 07/02/2023 2:03 PM EDT 07/02/2023 4:07 PM EDT Elida Wang MD LAB BLOOD ORDERABLES Final Result Performing Organization Address [facility]/ZIP Co de Phone Number [facility] [address] [place] [phone] * HIV-1/2 Antigen and Antibodies, Fourth Generation, with Reflexes (07/02/2023 2:03 PM EDT) [facility] HIV AB/AG Nonreactive Nonreactive [facility] Comment:HIV-1 p24 Ag and/or HIV-1/HIV-2 Ab not detected.A test result that is nonreactive does not exclude thepossibility of exposure to or infection with HIV-1 and/orHIV-2. Nonreactive results in this assay for individualswith prior exposure to HIV-1 and/or HIV-2 may be due toantigen and antibody levels that are below the limit ofdetection of this assay.The [employer] HIV Ag/Ab Combo assay result andsupplemental assay results should be interpreted inconjunction with the patient's clinical presentation,history and other laboratory results. If the results areinconsistent with clinical evidence, additional testing issuggested to confirm the result. Blood Venous blood specimen / Unknown 07/02/2023 2:03 PM EDT 07/02/2023 4:07 PM EDT us Elida Wang MD LAB BLOOD ORDERABLES Final Result Performing Organization Address City/[facility]/ZIP Co de Phone Number [facility] [address] [place] [phone] * THINPREP TIS PAP REFLEX HPV mRNA E6/E7, CHLAMYDIA/N.GONORRHOEAE (12/03/2020 1:53 PM EDT) Chlamydia trachomatis RNA, TMA, Urogenital NOT DETECTED NOT DETECTED [facility] Clinical Information: None given [facility] COMMENT SEE COMMENT [facility] Comment: The analytical performance characteristics of this assay, when used to test SurePath(TM) specimens have been determined by [employer]. The modifications have not been cleared or approved by the FDA. This assay has been validated pursuant to the CLIA regulations and is used for clinical purposes. ?? For additional information, please refer to https://education.[place]/faq/RAR373 (This link is being provided for information/ educational purposes only.) ?? COMMENT SEE COMMENT [facility] Comment: EXPLANATORY NOTE: ? The Pap is a screening test for cervical cancer. It is ?? not a diagnostic test and is subject to false negative ?? and false positive results. It is most reliable when a ?? satisfactory sample, regularly obtained, is submitted ?? with relevant clinical findings and history, and when ?? the Pap result is evaluated along with historic and ?? current clinical information. ?? COMMENT: This Pap test has been evaluated with computer assisted technology. [facility] [employer]: SEE COMMENT [facility] Comment: [facility], CT(ASCP) CT screening location: [address] ??[phone] Infection Shift in vaginal chrissie suggestive of bacterial vaginosis. [facility] Interpretation/Re sult: Negative for intraepithelial lesion or malignancy. [facility] LMP: NONE GIVEN [facility] Neisseria gonorrhoeae RNA, TMA, Urogenital NOT DETECTED NOT DETECTED [facility] Prev. BX: NONE GIVEN [facility] Prev. PAP: NONE GIVEN [facility] Review [employer]: SEE COMMENT [facility] Comment: , CT(ASCP) CT screening location: [address] ??[phone] SOURCE: None given [facility] Statement Of Adequacy: SEE COMMENT [facility] Comment: Satisfactory for evaluation. Endocervical/transformation zone component present. Age and/or menstrual status not provided 12/03/2020 1:53 PM EDT Elida Wang MD LAB PATHOLOGY ORDERABLES F inal Result Performing Organization Address [facility]/ZIP Co de Phone Number [facility] [address] * HPV E6/E7 RFLX SHAUN 16 18/45 (06/13/2016 10:25 AM EDT) HPV 16 RNA Test not performed [facility] HPV 18/45 RNA Test not performed [facility] HPV mRNA E6/E7 Not Detected NOT DETECTED [facility] Comment: This test was performed using the APTIMA(R) HPV Assay ([employer] This assay detects E6/E7 viral messenger RNA (mRNA) from 14 high-risk HPV types (16,18,31,33,35,39,45,51, 52,56,58,59,66,68). For additional information please refer to: http://education.[place]/faq/VAW963j7 (This link is being provided for informational/ educational purposes only.) Please note: ??Effective 10/22/2015, HPV testing will be performed using [employer]'s APTIMA test which targets mRNA. Detecting mRNA instead of DNA, as in older methods, offers significant improvements in specificity. ADDITIONAL TESTING Not indicated () [facility] Comment: Test Performed by [employer], [email or web address] [facility], [address] [place] [address] Jarret Lewis M.D., Ph.D., Director of Laboratories , [facility] [id number] 06/13/2016 10:2 5 AM EDT Elida Wang MD HISTORICAL/NON ORDERABLE L ABS Final Result Performing Organization Address [facility] Co de Phone Number [facility] [address] from Last 3 Months or Most Recently Relevant to Health Maintenance Insurance [facility] , [address] [place] [address] [facility] Care Teams Corporate Relations Manager Relationship Specialty Start Date End Date Felipe, MD Elida [address] [place] [phone] PCP - General Family Medicine 02/09/18
[2024-05-20 13:20] LABS: MANUAL DIFF FLAG NO
[2024-05-20 13:29] LABS: Basophils Absolute Auto 0.1 X10*3/uL (0.0-0.2); Basophils Percent Auto 1.3 % (0-2); Eosinophils Absolute Auto 0.4 X10*3/uL (0.0-0.4); Eosinophils Percent Auto 4.6 % (0-4); Hematocrit 37.3 % (37.0-47.0); Hemoglobin 12.2 g/dl (12.0-16.0); Imm Gran Abs Auto 0.02 X10*3/uL (0.00-0.03); Imm Gran Pct Auto 0.2 % (0.0-0.4); Lymphocytes Absolute Auto 2.8 X10*3/uL (1.2-4.9); Lymphocytes Percent Auto 33.1 % (20-40); Mean Corpuscular HGB Conc 32.7 g/dl (31.0-35.0); Mean Corpuscular Volume 91.6 fL (80.0-98.0); Mean Platelet Volume 10.1 fL (9.4-12.3); Monocytes Absolute Auto 0.6 X10*3/uL (0.1-1.2); Monocytes Percent Auto 6.7 % (2-11); Neutrophils Absolute Auto 4.6 x10*3/uL (2.0-8.3); Neutrophils Percent Auto 54.1 % (45-73); Platelet Count 371 X10*3/uL (160-400); Red Blood Count 4.07 X10*6/uL (4.20-5.50); Red Cell Distribution Width 12.5 % (11.0-16.0); White Blood Count 8.5 X10*3/uL (4.8-10.8)
[2024-05-20 13:57] LABS: Alanine Aminotransferase 22 U/L (0-31); Albumin Level 3.9 g/dL (3.5-5.0); Alkaline Phosphatase 65 U/L (39-117); Anion Gap 8 (12-20); Aspartate Amino Transferase 22 U/L (5-31); Bilirubin Direct 0.2 mg/dL (0.0-0.5); Bilirubin Total 0.5 mg/dL (0.0-1.0); Blood Urea Nitrogen 9 mg/dL (9-16); Carbon Dioxide 27 mmol/L (22-29); Chloride 109 mmol/L (96-108); Cholesterol 163 mg/dL (<200); Estimated Glomerular Filt Rate > 60; Glucose Random 83 mg/dL (60-115); HDL Cholesterol 50 mg/dL (>40); Iron 80 mcg/dL (30-160); LDL Cholesterol Calculated 97 mg/dL (<100); Percent Iron Saturation 27 % (15-50); Potassium 3.7 mmol/L (3.3-5.1); Sodium 140 mmol/L (135-145); Total Iron Binding Capacity 301 mcg/dL (228-428); Total Protein 6.8 g/dL (6.5-8.0); Triglycerides 80 mg/dL (<150); Unsaturated Iron Binding 221 ug/dL
[2024-05-20 14:00] LABS: HIV AB/AG Nonreactive (Nonreactive); HIV Num 1 0.06 S/CO (0.00-0.99)
[2024-05-20 14:03] LABS: Syphilis Screen Nonreactive (Nonreactive)
[2024-05-20 14:10] LABS: Folate 12.2 ng/mL (> or = 4.0); Vitamin B12 339 pg/mL (200-900)
[2024-05-20 14:17] LABS: Ferritin 51 ng/mL (10-122); TSH reflex Free T4 0.84 uIU/mL (0.32-4.0); Vitamin D 25-OH Total 17.5 ng/mL (>30)
== END 2024-05-20 11:18 | disposition home or self-care (01) ==
LOC: HO.HHCL 11:17
PROVIDERS: Visit Provider Family Medicine
DX: L65.9 Nonscarring hair loss, unspecified (principal); E66.3 Overweight; D64.9 Anemia, unspecified; E55.9 Vitamin D deficiency, unspecified; Z11.3 Encounter for screening for infections with a predominantly sexual mode of transmission; Z12.4 Encounter for screening for malignant neoplasm of cervix
CPT/HCPCS: 36415; 80048; 80061; 80076; 82306; 82607; 82728; 82746; 83540; 84443; 85025; 86780; 87389